=== PATIENT | male | born 1955 | race Asian ===

== ENCOUNTER 2020-01-29 00:34 | Emergency (ER) | payer BC, OTHER ==
[2020-01-29 01:38] LABS: ABS Basophils 0.1 10^3/ul (0-0.2); ABS Eosinophils 0.4 10^3/ul (0-0.6); ABS Lymphocytes 2.9 10^3/ul (1.0-4.8); ABS Monocytes 0.7 10^3/ul (0-0.8); ABS Neutrophils 4.9 10^3/ul (1.5-7.7); Eosinophil % 4.5 %; Hematocrit 43 % (42-52); Hemoglobin 14.5 g/dL (14.0-18.0); Lymphocyte % 31.7 %; Mean Corpuscular HGB Conc 34 g/dL (31-36); Mean Corpuscular Hemoglobin 29 pg (27-31); Mean Corpuscular Volume 85 fL (80-94); Mean Platelet Volume 9.4 fL (7.4-10.4); Nucleated Red Blood Cells % 0.1; Platelet Count 216 10^3/uL (150-450); Red Blood Count 5.03 10^6 /uL (4.18-5.48); Red Cell Distribution Width 14 % (10-15)
[2020-01-29 01:44] LABS: INR 0.98 (0.82-1.09)
--- NOTE | 2020-01-29 01:49 | ED ---
Respiratory - HPI Summary HPI Summary: Patient is a 64 year-old male presenting to [facility] with a chief complaint of dry cough and left-sided chest pain onset today. He reports that he had been suffering from a dry cough for about a month which seemingly improved. On the morning of 01/27/2020, he had driven back to [place] from [place] where he was visiting his daughter, when he felt the dry cough returned. He had been taking OTC medications, including Nyquil and cough syrups, without relief. Today, he developed left-sided chest pain without any nausea or diaphoresis. No cardiac history. Symptoms rated 5/10 in severity. There are no aggravating factors. He denies fevers or shortness of breath. No known exposure to individual with COVID -19. Past medical history includes diabetes, hyperlipidemia. Nonsmoker, occasional EtOH, no substance use. Medications reviewed. Allergies noted. - History of Current Complaint Chief Complaint: EDUpperRespComplaint Stated Complaint: COUGH/SOB/CHEST PAIN PER PT Time Seen by Provider: 01/29/20 00:36 Hx Obtained From: Patient Onset/Duration: Gradual Onset, Lasting Days, Still Present Initial Severity: Mild Current Severity: Moderate Pain Intensity: 5 Character: Cough (Nonproductive) Aggravating Factor(s): Nothing Alleviating Factor(s): Nothing Associated Signs and Symptoms: Chest Pain with Cough - Risk Factors Cardiac Risk Factors: Diabetes - Allergy/Home Medications Allergies/Adverse Reactions: Allergies Allergy/AdvReac Type Severity Reaction Status Date / Time No Known Allergies Allergy Verified 01/29/20 01:05 Home Medications: Home Medications Aspirin 81 mg CHEW TAB* 81 mg PO DAILY 01/29/20 [History Confirmed 01/29/20] metFORMIN* 500 mg PO DAILY 01/29/20 [History Confirmed 01/29/20] PMH/Surg Hx/FS Hx/Imm Hx Endocrine/Hematology History: Reports: Hx Diabetes Cardiovascular History: Reports: Hx Hypercholesterolemia - Surgical History Surgical History: None Surgery Procedure, Year, and Place: none - Immunization History Date of Influenza Vaccine: fall 2017 Infectious Disease History: No Infectious Disease History: Denies: Traveled Outside the in Last 30 Days - Family History Known Family History: Positive: Hypertension - Social History Alcohol Use: Occasionally Hx Substance Use: No Substance Use Type: Reports: None Hx Tobacco Use: No Smoking Status (MU): Never Smoked Tobacco - Additional Comments History Additional Comments: diabetes, hyperlipidemia Review of Systems - ROS Summary Review of Systems Summary: Home Medications Medication Instructions Recorded Confirmed Type Aspirin 81 mg CHEW TAB* 81 mg PO DAILY 01/29/20 01/29/20 History metFORMIN* 500 mg PO DAILY 01/29/20 01/29/20 History Negative: Fever, Skin Diaphoresis Positive: Chest Pain - left-sided Positive: Cough - dry. Negative: Shortness Of Breath Negative: Nausea All Other Systems Reviewed And Are Negative: Yes Physical Exam - Summary Physical Exam Summary: General: Well-developed, Morbidly obese male. No acute distress. HEENT: Normocephalic, Atraumatic. Eyes: Conjuctiva normal, PERRL. Oropharynx: Clear, mucous membranes moist, (-) exudates. Neck: Soft, FROM, (-) lymphadenopathy, (-) thyromegaly, (-) JVD. Cardiovascular: Normal sinus rhythm, (-) murmur. Lungs: Clear to auscultation bilaterally (-) wheezes, (-) rales, (-) rhonchi. Abdomen: Soft, non-tender, non-distended, (-) organomegaly, normal bowel sounds. Back: (-) CVA tenderness Extremities: No edema. Skin: Warm, dry, (-) rash. Neuro: Alert and oriented x3, moves all extremities equally. No ataxia. No gait disturbance. No sensory deficit. Normal strength, normal sensation. Psychiatric: Mood normal, affect normal. Vital Signs On Initial Exam: Initial Vitals Temp Pulse Resp BP Pulse Ox 97.0 F 92 16 164/85 97 01/29/20 00:55 01/29/20 00:55 01/29/20 00:55 01/29/20 00:55 01/29/20 00:55 Vital Signs Reviewed: Yes Procedures - Sedation Patient Received Moderate/Deep Sedation with Procedure: No Diagnostics - Vital Signs Vital Signs Temp Pulse Resp BP Pulse Ox 01/29/20 01:04 91 141/89 96 01/29/20 01:03 91 96 01/29/20 01:02 92 164/85 97 01/29/20 00:55 97.0 F 92 16 164/85 97 - Laboratory Lab Results: Lab Results 01/29/20 Range/Units 01:20 WBC 9.0 (3.5-10.8) 10^3/uL RBC 5.03 (4.18-5.48) 10^6 /uL Hgb 14.5 (14.0-18.0) g/dL Hct 43 (42-52) % MCV 85 (80-94) fL MCH 29 (27-31) pg MCHC 34 (31-36) g/dL RDW 14 (10-15) % Plt Count 216 (150-450) 10^3/uL MPV 9.4 (7.4-10.4) fL Neut % (Auto) 55.0 % Lymph % (Auto) 31.7 % [place] % (Auto) 8.0 % Eos % (Auto) 4.5 % Baso % (Auto) 0.8 % Absolute Neuts (auto) 4.9 (1.5-7.7) 10^3/ul Absolute Lymphs (auto) 2.9 (1.0-4.8) 10^3/ul Absolute Monos (auto) 0.7 (0-0.8) 10^3/ul Absolute Eos (auto) 0.4 (0-0.6) 10^3/ul Absolute Basos (auto) 0.1 (0-0.2) 10^3/ul Absolute Nucleated RBC 0.0 10^3/ul Nucleated RBC % 0.1 Result Diagrams: 01/29/20 01:20 01/29/20 01:20 Lab Statement: Any lab studies that have been ordered have been reviewed, and results considered in the medical decision making process. - Radiology CXR Radiology Interpretation Completed By: ED Physician Summary of Radiographic Findings: No infiltrate. No pleural effusion. This imaging scan was reviewed and interpreted by Dr. Workman, pending official read. - EKG 0047 Cardiac Rate: NL - 87 BPM EKG Rhythm: Sinus Rhythm Summary of EKG Findings: EKG at 0047 reveals normal sinus rhythm with rate of 87 BPM, no acute changes, no ischemic changes. This EKG was reviewed and interpreted by Dr. Workman. Re-Evaluation - Re-Evaluation First Eval Re-Evaluation Time: 05:20 Comment: I discussed all results. Discussed all symptoms that warrant return to the ED. Disposition - Course Course Of Treatment: 64-year-old male presents to the emergency room with cough. He is immediately placed under droplet and contact precautions. He states he has had a cough for almost a month. Lives in [place]. States the cough is getting better with [id number] medications. He came to [place] Thursday to visit his daughter. Came with his son. His cough restarted. Today he developed left-sided chest pain. He denies any fever. Cough is dry. No nausea or vomiting or diarrhea. No diaphoresis. No known exposures. He does have diabetes and denies any heart disease or lung disease. On physical exam his lungs are clear. Afebrile. Cardiac workup done which is negative including 2 troponins. Coumadin 19 test performed. Patient is discharged home on quarantine for 14 days unless contacted by the health department without instructions. Follow-up sooner for any worsening symptoms. - Diagnoses Provider Diagnoses: Cough, Chest pain Discharge ED - Sign-Out/Discharge Documenting (check all that apply): Patient Departure - Patient will be discharged home. - Discharge Plan Condition: Stable Disposition: HOME Patient Education Materials: Chest Pain (DC), Acute Cough (ED) Referrals: [facility] [Outside] - If Needed Additional Instructions: Please self-isolate yourself at home until the Health Department tells you otherwise. Your coronavirus results will be relayed to you by the Health Department. Follow up with your primary care provider as needed. Return to the emergency department for any new or worsening symptoms. - Billing Disposition and Condition Condition: STABLE Disposition: Home - Attestation Statements Document Initiated by Karen: Yes Documenting Scribe: Sheri New Provider For Whom Karen is Documenting (Include Credential): Tanisha Workman MD Scribe Attestation: Sheri Shepaprd, scribed for Tanisha Workman MD on 01/29/20 at 0553. Scribe Documentation Reviewed: Yes Provider Attestation: The documentation as recorded by the Sheri lakhani accurately reflects the service I personally performed and the decisions made by me, Tanisha Workman MD Status of Scribe Document: Viewed
[2020-01-29 01:56] LABS: Albumin 3.8 g/dL (3.2-5.2); BUN/Creatinine Ratio 14.9 (8-20); Calcium 9.3 mg/dL (8.6-10.3); EGFR African American 129.3 (>60); EGFR Non-African American 106.8 (>60); Globulin 3.7 g/dL (2-4); Total Bilirubin 0.2 mg/dL (0.2-1.0); Total Protein 7.5 g/dL (6.4-8.9)
[2020-01-29 01:57] LABS: Troponin I 0.01 ng/mL (<0.03)
[2020-01-29 02:14] LABS: Potassium 3.8 mmol/L (3.5-5.0)
[2020-01-29 03:00] LABS: Influenza A Molecular Negative (Negative); Influenza B Molecular Negative (Negative)
[2020-01-29 05:57] VITALS: BP 109/64
== END 2020-01-29 05:45 | disposition home or self-care (01) ==
LOC: ED 00:34
DX: R07.9 Chest pain, unspecified (principal); R05 Cough; E11.9 Type 2 diabetes mellitus without complications; E78.5 Hyperlipidemia, unspecified; E78.00 Pure hypercholesterolemia, unspecified; Z79.84 Long term (current) use of oral hypoglycemic drugs; Z79.82 Long term (current) use of aspirin; Z20.828 Contact with and (suspected) exposure to other viral communicable diseases
CPT/HCPCS: 36415; 71045; 80053; 83605; 83880; 84484; 85025; 85379; 85610; 87635; 93005; 99284